=== PATIENT | male | born 1990 | race Caucasian/White ===

== ENCOUNTER → 2024-01-29 11:14 | Outpatient (REF) | payer OTHER, SELFPAY ==
[2024-01-29 13:03] LABS: Rubella Positive
[2024-01-29 13:36] LABS: Hepatitis B Surface Antibody Positive
[2024-01-31 07:40] LABS: Quantiferon Mitogen minus NIL 9.99 IU/mL; Quantiferon NIL 0.01 IU/mL; Quantiferon Plus TB1 minus NIL 0.04 IU/mL (<=0.34); Quantiferon Plus TB2 minus NIL 0.03 IU/mL (<=0.34); Quantiferon TB Gold Plus Negative (Negative)
== END ==
LOC: REG 11:14
PROVIDERS: ATTENDING PHYSICIAN Nurse Practitioner Family
DX: Z23 Encounter for immunization (principal)
CPT/HCPCS: 36415; 86480; 86706; 86735; 86762; 86765; 86787